=== PATIENT | male | born 1975 | race Two or more races ===

== ENCOUNTER 2019-08-30 00:14 | Emergency (ER) | payer MEDICARE, MEDICAID | END 2019-08-30 01:02 | disposition left against medical advice (07) | LOC: ER 00:21 | DX: R20.0 Anesthesia of skin (principal); Z53.21 Procedure and treatment not carried out due to patient leaving prior to being seen by health care provider ==

== ENCOUNTER 2021-12-14 14:15 | Inpatient (IN) | payer MEDICARE, MEDICAID ==
[~2021-12-14] VITALS: Ht 182.9 cm; Wt 160.2 kg
[2021-12-14] MEDS ORDERED: IOHEXOL 350 MG/ML 100ML IJ ONE ×2 (14:26→14:28)
[2021-12-14] MEDS ORDERED: methylPREDNISolone SOD SUCC 125 MG/2 ML VL IV ONE (14:30)
[2021-12-14 14:55] LABS: Hematocrit 48.6 % (41.0-53.0); Hemoglobin 16.6 g/dL (13.5-17.5); Mean Corpuscular Hemoglobin 28.2 pg (28.0-32.0); Red Blood Cells 5.86 10^6/uL (4.5-5.90); Red Cell Distribution Width 14.4 % (11.8-14.3); White Blood Cell 17.7 10^3/uL (4.4-10.8)
[2021-12-14 15:01] LABS: Basophils % (manual) 0 (0.0-2.0); Blast Cells 0; Eosinophils % (manual) 0 (0-7); Metamyelocytes % 0; Myelocytes % 0; Promyelocytes % 0; Reactive Lymphocytes 0
[2021-12-14 15:09] LABS: Urine Bacteria NONE SEEN /hpf (None Seen); Urine Blood Negative /uL (Negative); Urine Hyaline Cast FEW /lpf (0 - 2); Urine Mucus FEW (None Seen); Urine WBC 2 /hpf (0 - 3)
[2021-12-14 15:20] LABS: Lactic Acid w/Reflex 3.4 mmol/L (0.4-2.0)
[2021-12-14 15:35] VITALS: BP 160/84
[2021-12-14 15:57] LABS: Band Neutrophils % (manual) 2; Lymphocytes % (manual) 2 (10.0-50.0); Monocytes % (manual) 10 (0-12)
[2021-12-14] MEDS ORDERED: AZITHROMYCIN 500MG/ 250ML 250 ML IV ONE (16:00)
[2021-12-14] MEDS ORDERED: ENOXAPARIN SOD 100 MG/1 ML SYRINGE SC ONE (16:00)
[2021-12-14] MEDS ORDERED: CHOLECALCIFEROL (VITD3) 2,000 UNIT CAP/TAB PO ONE (16:00)
[2021-12-14] MEDS ORDERED: ASCORBIC ACID 500 MG TAB PO ONE (16:00)
[2021-12-14] MEDS ORDERED: REMDESIVIR PER PHARMACY 0 ML IV SCH (16:00)
[2021-12-14] MEDS ORDERED: ZINC SULFATE 220mg CAP or TAB PO ONE (16:00)
[2021-12-14 16:12] LABS: Albumin 2.7 g/dL (3.4-5.0); Calcium 7.5 mg/dL (8.5-10.1)
[2021-12-14] MEDS ORDERED: ONDANSETRON HCL 4 MG/2 ML VIAL IV PRN (16:15)
[2021-12-14] MEDS ORDERED: MORPHINE SULFATE INJECTION 2 MG/ML SYRG IV PRN (16:15)
[2021-12-14] MEDS ORDERED: NITROGLYCERIN 0.4 MG SL TAB SL PRN (16:15)
[2021-12-14 16:20] LABS: BUN/Creatinine Ratio 17.2; Bilirubin, Total 1.8 mg/dL (0.2-1.0); CRP High Sensitivity 8.48 mg/dL (< 0.3); Total Protein 7.5 g/dL (6.4-8.2)
[2021-12-14 16:24] LABS: Potassium 4.9 mmol/L (3.5-5.1)
[2021-12-14 16:40] VITALS: BP 149/82
[2021-12-14] MEDS ORDERED: FUROSEMIDE 40 MG/4 ML VIAL IV ONE (16:45)
[2021-12-14 16:55] VITALS: BP 149/82
[2021-12-14] MEDS ORDERED: DexAMETHasone SOD PHOS 10MG/1ML VIAL INJ IV ONE (17:00)
[2021-12-14] MEDS: cefTRIAXone 1GM/50ML D5W 50 ML IV SCH (17:39)
[2021-12-14] MEDS ORDERED: DexAMETHasone INJECTION 6 MG in D5W 5% 50 ML IV SCH (18:00)
[2021-12-14] MEDS ORDERED: REMDESIVIR 200 MG in NS 210ml LOADING DOSE ADULT IV ONE (18:00)
[2021-12-14 19:46] VITALS: BP_SYST 15; BP_SYST 151; BP_DIAS 95
[2021-12-14] MEDS: IPRATROPIUM BROM 0.5 MG/2.5ML INH SOL NEB SCH (19:46)
[2021-12-14] MEDS: ALBUTEROL SULF 2.5 MG/0.5ML(0.5%) NEB SOLN NEB SCH (19:46)
[2021-12-14 22:00] VITALS: BP_SYST 15; BP_SYST 97; BP_DIAS 67; BP_DIAS 95
[2021-12-14 23:16] VITALS: BP 135/55
[2021-12-15] VITALS (43 sets, daily range): BP systolic 15–203; BP diastolic 62–122
[2021-12-15] MEDS: ALBUTEROL SULF 2.5 MG/0.5ML(0.5%) NEB SOLN NEB SCH ×4 (00:29→18:17)
[2021-12-15] MEDS: IPRATROPIUM BROM 0.5 MG/2.5ML INH SOL NEB SCH ×4 (00:29→18:17)
[2021-12-15 05:19] LABS: Albumin 2.5 g/dL (3.4-5.0); BUN/Creatinine Ratio 15.2; Calcium 7.6 mg/dL (8.5-10.1); Potassium 3.7 mmol/L (3.5-5.1)
[2021-12-15 05:24] LABS: Bilirubin, Total 1.4 mg/dL (0.2-1.0); Total Protein 6.4 g/dL (6.4-8.2)
[2021-12-15] MEDS ORDERED: LORazepam 2MG/ML-1ML VIAL IV ONE (05:30)
[2021-12-15] MEDS ORDERED: LORazepam 2MG/ML-1ML VIAL ONE (05:53)
[2021-12-15] MEDS: DexAMETHasone SOD PHOS 10MG/1ML VIAL INJ IV SCH ×5 (05:54→23:57)
[2021-12-15] MEDS: MORPHINE SULFATE INJECTION 2 MG/ML SYRG IV PRN ×2 (09:34→23:58)
[2021-12-15] MEDS: cefTRIAXone 1GM/50ML D5W 50 ML IV SCH (09:34)
[2021-12-15] MEDS: AZITHROMYCIN 500MG/ 250ML 250 ML IV SCH (09:34)
[2021-12-15] MEDS: LORazepam 2MG/ML-1ML VIAL IV PRN (13:40)
[2021-12-15 14:09] LABS: Basophils # (auto) 0.1 10 ^3/uL (0-0.2); Basophils % (auto) 0.3 % (0.0-2.0); Eosinophils # (auto) 0 10 ^3/uL (0-0.8); Eosinophils % (auto) 0.1 % (0.0-7.0); Hematocrit 43.4 % (41.0-53.0); Lymphocytes # (auto) 0.3 10 ^3/uL (0.4-5.4); Lymphocytes % (auto) 1.5 % (10.0-50.0); Mean Corpuscular Hemoglobin 28.7 pg (28.0-32.0); Mean Corpuscular Hgb Conc. 34.6 g/dL (32.0-36.0); Monocytes % (auto) 4.7 % (0.0-12.0); Neutrophils # (auto) 20.6 10 ^3/uL (1.6-8.6); Neutrophils % (auto) 93.4 % (37.0-80.0); Nucleated Red Blood Cells % 0.3 %; Red Blood Cells 5.24 10^6/uL (4.5-5.90); Red Cell Distribution Width 14.7 % (11.8-14.3); White Blood Cell 22.1 10^3/uL (4.4-10.8)
[2021-12-15] MEDS: REMDESIVIR 100mg 100 MG in SODIUM CHL 0.9% 230 ML IV SCH (14:57)
[2021-12-15] MEDS: hydrALAZINE HCL 20 MG/ML VL IV PRN (16:47)
[2021-12-16] VITALS (29 sets, daily range): BP systolic 93–186; BP diastolic 29–118
[2021-12-16] MEDS ORDERED: ACETAMINOPHEN 500 MG TAB PO PRN (01:30)
[2021-12-16] MEDS: IPRATROPIUM BROM 0.5 MG/2.5ML INH SOL NEB SCH ×4 (02:12→18:26)
[2021-12-16] MEDS: ALBUTEROL SULF 2.5 MG/0.5ML(0.5%) NEB SOLN NEB SCH ×4 (02:12→18:26)
[2021-12-16 04:00] LABS: Basophils # (auto) 0 10 ^3/uL (0-0.2); Basophils % (auto) 0.1 % (0.0-2.0); Eosinophils # (auto) 0 10 ^3/uL (0-0.8); Hematocrit 45.5 % (41.0-53.0); Hemoglobin 15.4 g/dL (13.5-17.5); Lymphocytes # (auto) 0.2 10 ^3/uL (0.4-5.4); Lymphocytes % (auto) 0.6 % (10.0-50.0); Mean Corpuscular Hemoglobin 28.5 pg (28.0-32.0); Mean Corpuscular Hgb Conc. 33.9 g/dL (32.0-36.0); Mean Corpuscular Volume 84.2 fL (80.0-100.0); Monocytes % (auto) 3.9 % (0.0-12.0); Neutrophils # (auto) 23.8 10 ^3/uL (1.6-8.6); Neutrophils % (auto) 95.4 % (37.0-80.0); Nucleated Red Blood Cells % 0.4 %; Red Cell Distribution Width 14.8 % (11.8-14.3)
[2021-12-16 04:16] LABS: Albumin 2.5 g/dL (3.4-5.0); BUN/Creatinine Ratio 17.8; Calcium 7.9 mg/dL (8.5-10.1); Potassium 3.8 mmol/L (3.5-5.1)
[2021-12-16 04:19] LABS: Bilirubin, Total 1.5 mg/dL (0.2-1.0); Total Protein 6.5 g/dL (6.4-8.2)
[2021-12-16] MEDS: LORazepam 2MG/ML-1ML VIAL IV PRN ×2 (04:40→10:46)
[2021-12-16] MEDS: DexAMETHasone SOD PHOS 10MG/1ML VIAL INJ IV SCH ×2 (06:15→12:34)
[2021-12-16] MEDS: cefTRIAXone 1GM/50ML D5W 50 ML IV SCH (09:12)
[2021-12-16] MEDS: MORPHINE SULFATE INJECTION 2 MG/ML SYRG IV PRN ×2 (09:13→16:34)
[2021-12-16] MEDS: AZITHROMYCIN 500MG/ 250ML 250 ML IV SCH (10:43)
[2021-12-16] MEDS: hydrALAZINE HCL 20 MG/ML VL IV PRN (10:46)
[2021-12-16] MEDS ORDERED: FUROSEMIDE 100 MG/10ML VIAL IV ONE (12:00)
[2021-12-16] MEDS ORDERED: LABETALOL HCL 5 MG/ML 4ML SYRINGE IV PRN (12:45)
[2021-12-16] MEDS: REMDESIVIR 100mg 100 MG in SODIUM CHL 0.9% 230 ML IV SCH (15:15)
[2021-12-16 19:44] LABS: Hematocrit 51.4 % (41.0-53.0); Hemoglobin 17.2 g/dL (13.5-17.5); Mean Corpuscular Hemoglobin 28.8 pg (28.0-32.0); Mean Corpuscular Hgb Conc. 33.5 g/dL (32.0-36.0); Mean Corpuscular Volume 85.8 fL (80.0-100.0); Red Blood Cells 5.99 10^6/uL (4.5-5.90); Red Cell Distribution Width 14.9 % (11.8-14.3); White Blood Cell 27.9 10^3/uL (4.4-10.8)
[2021-12-16 19:50] LABS: Albumin 2.8 g/dL (3.4-5.0); Calcium 8.3 mg/dL (8.5-10.1); Magnesium 3.2 mg/dL (1.6-2.6)
[2021-12-16 19:52] LABS: BUN/Creatinine Ratio 16.7
[2021-12-16 19:55] LABS: Bilirubin, Total 1.8 mg/dL (0.2-1.0); Total Protein 7.6 g/dL (6.4-8.2)
[2021-12-16 19:57] LABS: Band Neutrophils % (manual) 0; Basophils % (manual) 0 (0.0-2.0); Blast Cells 0; Eosinophils % (manual) 0 (0-7); Metamyelocytes % 0; Myelocytes % 0; Promyelocytes % 0; Reactive Lymphocytes 0
[2021-12-16 20:44] LABS: Lymphocytes % (manual) 3 (10.0-50.0); Monocytes % (manual) 8 (0-12)
== END 2021-12-16 21:35 | DRG 871 ==
LOC: ER 14:15 → EDBD 14:15 → OVERFLOW 16:15 → ICU WEST 12-15 03:02
PROVIDERS: ADMIT Internal Medicine; ATTEND Internal Medicine
PROC: 5A09457 Assistance with Respiratory Ventilation, 24-96 Consecutive Hours, Continuous Positive Airway Pressure (ICD-10-PCS; principal; 2021-12-14)
PROC: 05HC33Z Insertion of Infusion Device into Left Basilic Vein, Percutaneous Approach (ICD-10-PCS; 2021-12-14)
PROC: B54NZZA Ultrasonography of Left Upper Extremity Veins, Guidance (ICD-10-PCS; 2021-12-14)
PROC: XW033E5 Introduction of Remdesivir Anti-infective into Peripheral Vein, Percutaneous Approach, New Technology Group 5 (ICD-10-PCS; 2021-12-14)
PROC: 5A12012 Performance of Cardiac Output, Single, Manual (ICD-10-PCS; 2021-12-16)
DX: A41.89 Other specified sepsis (principal); J12.82 Pneumonia due to coronavirus disease 2019; J80 Acute respiratory distress syndrome; U07.1 COVID-19; E87.1 Hypo-osmolality and hyponatremia; I16.0 Hypertensive urgency; Z23 Encounter for immunization; I11.0 Hypertensive heart disease with heart failure; I50.9 Heart failure, unspecified; D89.839 Cytokine release syndrome, grade unspecified; Z66 Do not resuscitate; Z51.5 Encounter for palliative care
CPT/HCPCS: 36415; 36600; 51702; 71045; 71275; 80053; 81001; 82728; 82805; 83605; 83735; 83880; 84300; 84484; 85007; 85025; 85027; 85379; 86141; 87040; 87081; 87426; 93005; 93306; 94640; 94660; 96365; 96366; 96372; 96375; 99291; G0378; J0696; J1100; J3490; J7060